=== PATIENT | female | born 1935 | race Caucasian/White ===

== ENCOUNTER 2021-04-08 08:00 | Day surgery (SDC) | payer MEDICARE ==
[2021-04-04 15:14] VITALS: BMI 25.0
[2021-04-08] MEDS ORDERED: Lidocaine 1% MPF 2 ML VIAL ONE (09:31)
[2021-04-08] MEDS ORDERED: PROPOFOL 20 ML ONE ×4 (10:20→11:27)
== END 2021-04-08 12:02 | disposition home or self-care (01) ==
LOC: CSHSDC 08:00
PROVIDERS: ATTEND Internal Medicine Gastroenterology
PROC: 0DB68ZZ Excision of Stomach, Via Natural or Artificial Opening Endoscopic (ICD-10-PCS; principal; 2021-04-08)
PROC: 0DJD8ZZ Inspection of Lower Intestinal Tract, Via Natural or Artificial Opening Endoscopic (ICD-10-PCS; 2021-04-08)
DX: D50.9 Iron deficiency anemia, unspecified (principal); K31.7 Polyp of stomach and duodenum; K44.9 Diaphragmatic hernia without obstruction or gangrene; Z86.010 Personal history of colon polyps; Q43.8 Other specified congenital malformations of intestine
CPT/HCPCS: 88305; J2704

== ENCOUNTER 2021-12-16 08:22 | Outpatient (CLI) | payer MEDICARE | END 2021-12-16 08:23 | disposition home or self-care (01) | LOC: CSHMRI 08:22 | PROVIDERS: ATTEND Specialist | DX: M54.12 Radiculopathy, cervical region (principal); M47.812 Spondylosis without myelopathy or radiculopathy, cervical region; M48.02 Spinal stenosis, cervical region | CPT/HCPCS: 72141 ==